=== PATIENT | female | born 1930 | race Caucasian/White ===

== ENCOUNTER 2017-10-28 07:04 | Emergency (ER) | payer MEDICARE, BC ==
--- NOTE | 2017-10-28 07:38 | EDM.PDOC ---
ED HPI GENERAL MEDICAL PROBLEM - General Chief Complaint: Genitourinary Problem Stated Complaint: UNABLE TO BATHROOM Time Seen by Provider: 10/28/17 07:25 - History of Present Illness INITIAL COMMENTS - FREE TEXT/NARRATIVE: HISTORY AND PHYSICAL: History of present illness: Patient is an 87-year-old white female who presents with a concern of having ingested a [place] several days prior and was concerned about not having passing her stool she has no abdominal pain no difficulty swallowing or breathing and no other complaints she also has had small frequent urination in the form of hesitancy. She equivocates regarding discomfort with urination she denies nausea vomiting fever chills back or abdominal pain. Review of systems: As per history of present illness and below otherwise all systems reviewed and negative. Past medical history: As per history of present illness and as reviewed below otherwise noncontributory. Surgical history: As per history of present illness and as reviewed below otherwise noncontributory. Social history: No reported history of drug or alcohol abuse. Family history: As per history of present illness and as reviewed below otherwise noncontributory. Physical exam: HEENT: Atraumatic, normocephalic, pupils reactive, negative for conjunctival pallor or scleral icterus, mucous membranes moist, throat clear, neck supple, nontender, trachea midline. Lungs: Clear to auscultation, breath sounds equal bilaterally, chest nontender. Heart: S1S2, regular, negative for clicks, rubs, or JVD. Abdomen: Soft, nondistended, nontender. Negative for masses or hepatosplenomegaly. Negative for costovertebral tenderness. Pelvis: Stable nontender. Genitourinary: Deferred. Rectal: Deferred. Extremities: Atraumatic, negative for cords or calf pain. Neurovascular unremarkable. Neuro: Awake, alert, oriented. Cranial nerves II through XII unremarkable. Cerebellum unremarkable. Motor and sensory unremarkable throughout. Exam nonfocal. Diagnostics: CBC CMP UA urine culture and sensitivity BladderScan Therapeutics: None Impression: 1 UTI Definitive disposition and diagnosis as appropriate pending reevaluation and review of above. lower abdominal Pain Score (Numeric/FACES): 1 - Related Data Allergies Allergy/AdvReac Type Severity Reaction Status Date / Time metoclopramide HCl Allergy Disorientat Verified 10/21/13 07:44 [From Reglan] ion Sulfa (Sulfonamide Allergy Swelling Verified 10/21/13 07:44 Antibiotics) Home Meds: Home Meds Acetaminophen [Tylenol Extra Strength] 1 tab PO ASDIRECTED PRN 10/21/13 [History ] Amoxicillin [Amoxil] 4 cap PO ASDIRECTED 10/21/13 [History] Ibuprofen [Motrin] 1 tab PO ASDIRECTED PRN 10/21/13 [History] Levothyroxine 112 mcg PO ACBRK 10/21/13 [History] Polyvinyl Alcohol/Povidone [Refresh Eye Drops] 1 drop EYEBOTH PRN 10/21/13 [ History] Sertraline [Zoloft] 50 mg PO DAILY 10/21/13 [History] Zolpidem [Ambien] 5 mg PO BEDTIME PRN 10/21/13 [History] traZODone 50 mg PO DAILY 10/21/13 [History] Past Medical History HEENT History: Reports: None Cardiovascular History: Reports: None Respiratory History: Reports: None Gastrointestinal History: Reports: None Genitourinary History: Reports: None 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 ED EXAM, GENERAL - Physical Exam Exam: See Below (Dictation) Course - Vital Signs Last Recorded V/S: Last Vital Signs Temp 36.2 C 10/28/17 07:15 Pulse 86 10/28/17 07:15 Resp 18 10/28/17 07:15 BP 156/88 H 10/28/17 07:15 Pulse Ox 94 L 10/28/17 07:15 - Orders/Labs/Meds Orders: Active Orders 24 hr Category Date Time Status CULTURE URINE [RM] Stat Lab 10/28/17 07:50 Received UA W/MICROSCOPIC [URIN] Stat Lab 10/28/17 07:50 Ordered Labs: Laboratory Tests 10/28/17 10/28/17 10/28/17 Range/Units 07:48 07:48 07:50 WBC 4.78 (4.0-11.0) K/uL RBC 3.96 L (4.30-5.90) M/uL Hgb 12.5 (12.0-16.0) g/dL Hct 37.0 (36.0-46.0) % MCV 93.4 (80.0-98.0) fL MCH 31.6 (27.0-32.0) pg MCHC 33.8 (31.0-37.0) g/dL RDW Std Deviation 45.4 (28.0-62.0) fl RDW Coeff of Felipe 13 (11.0-15.0) % Plt Count 185 (150-400) K/uL MPV 9.60 (7.40-12.00) fL Neut % (Auto) 46.9 L (48.0-80.0) % Lymph % (Auto) 38.5 (16.0-40.0) % [place] % (Auto) 9.4 (0.0-15.0) % Eos % (Auto) 4.6 (0.0-7.0) % Baso % (Auto) 0.6 (0.0-1.5) % Neut # (Auto) 2.2 (1.4-5.7) K/uL Lymph # (Auto) 1.8 (0.6-2.4) K/uL [place] # (Auto) 0.5 (0.0-0.8) K/uL Eos # (Auto) 0.2 (0.0-0.7) K/uL Baso # (Auto) 0.0 (0.0-0.1) K/uL Nucleated RBC % 0.0 /100WBC Nucleated RBCs # 0 K/uL Sodium 142 (136-145) mmol/L Potassium 4.0 (3.5-5.1) mmol/L Chloride 106 (98-107) mmol/L Carbon Dioxide 27.1 (21.0-32.0) mmol/L BUN 29 H (7.0-18.0) mg/dL Creatinine 0.8 (0.6-1.0) mg/dL Est Cr Clr Drug Dosing TNP Estimated GFR (MDRD) > 60.0 ml/min Glucose 88 (74-106) mg/dL Calcium 8.7 (8.5-10.1) mg/dL Total Bilirubin 0.4 (0.2-1.0) mg/dL AST 18 (15-37) IU/L ALT 17 (14-63) IU/L Alkaline Phosphatase 73 (46-116) U/L Total Protein 6.7 (6.4-8.2) g/dL Albumin 3.5 (3.4-5.0) g/dL Globulin 3.2 (2.0-3.5) g/dL Albumin/Globulin Ratio 1.1 L (1.3-2.8) Urine Color DARK YELLOW Urine Appearance SLT CLOUDY Urine pH 6.0 (5.0-8.0) Ur Specific [place] >= 1.030 (1.001-1.035) Urine Protein NEGATIVE (NEGATIVE) mg/dL Urine Glucose (UA) NEGATIVE (NEGATIVE) mg/dL Urine Ketones NEGATIVE (NEGATIVE) mg/dL Urine Occult Blood NEGATIVE (NEGATIVE) Urine Nitrite NEGATIVE (NEGATIVE) Urine Bilirubin NEGATIVE (NEGATIVE) Urine Urobilinogen 0.2 (<2.0) EU/dL Ur Leukocyte Esterase TRACE (NEGATIVE) Urine RBC 0-1 (0-2/HPF) Urine WBC 6-9 (0-5/HPF) Ur Epithelial Cells FEW (NONE-FEW) Urine Bacteria FEW (NEGATIVE) Urine Mucus LIGHT (NONE-MOD) Departure - Departure Time of Disposition: 09:52 Disposition: Home, Self-Care 01 Condition: Good Clinical Impression: UTI, Urinary tract infectious disease - Discharge Information Forms: ED Department Discharge Additional Instructions: The following information is given to patients seen in the emergency department who are being discharged to home. This information is to outline your options for follow-up care. We provide all patients seen in our emergency department with a follow-up referral. The need for follow-up, as well as the timing and circumstances, are variable depending upon the specifics of your emergency department visit. If you don't have a primary care physician on staff, we will provide you with a referral. We always advise you to contact your personal physician following an emergency department visit to inform them of the circumstance of the visit and for follow-up with them and/or the need for any referrals to a consulting specialist. The emergency department will also refer you to a specialist when appropriate. This referral assures that you have the opportunity for followup care with a specialist. All of these measure are taken in an effort to provide you with optimal care, which includes your followup. Under all circumstances we always encourage you to contact your private physician who remains a resource for coordinating your care. When calling for followup care, please make the office aware that this follow-up is from your recent emergency room visit. If for any reason you are refused follow-up, please contact the [facility] emergency department at and asked to speak to the emergency department charge nurse. Cipro Pyridium as prescribed push fluids follow primary medical doctor 1-2 days return as needed as discussed - My Orders Last 24 Hours: My Active Orders 10/28/17 07:50 CULTURE URINE [RM] Stat UA W/MICROSCOPIC [URIN] Stat - Assessment/Plan Last 24 Hours: My Active Orders 10/28/17 07:50 CULTURE URINE [RM] Stat UA W/MICROSCOPIC [URIN] Stat
[2017-10-28 08:20] LABS: CHLORIDE,CL 106 mmol/L (98-107); SODIUM,NA 142 mmol/L (136-145)
[2017-10-28 10:02] VITALS: BP 192/119
== END 2017-10-28 10:12 | disposition home or self-care (01) ==
LOC: MW.ED 07:04
DX: N39.0 Urinary tract infection, site not specified (principal); Z88.2 Allergy status to sulfonamides; Z88.8 Allergy status to other drugs, medicaments and biological substances; Z79.899 Other long term (current) drug therapy; Z90.710 Acquired absence of both cervix and uterus
CPT/HCPCS: 36415; 80053; 81001; 85025; 87086; 87088; 87186; 99283; 99284

== ENCOUNTER 2018-06-21 14:45 | Emergency (ER) | payer MEDICARE, BC ==
[2018-06-21] MEDS ORDERED: Sodium Chloride 0.9% 2.5 ML Syringe FLUSH PRN (14:51)
[2018-06-21] MEDS ORDERED: Sodium Chloride 0.9% 10 ML Syringe FLUSH PRN (14:51)
[2018-06-21] MEDS ORDERED: Sodium Chloride 0.9% 1,000 ML IV ONE (15:07)
--- NOTE | 2018-06-21 15:07 | EDM.PDOC ---
ED HPI GENERAL MEDICAL PROBLEM - General Chief Complaint: Abdominal Pain Stated Complaint: C DIFF Time Seen by Provider: 06/21/18 15:03 Source of Information: Reports: Patient History Limitations: Reports: No Limitations - History of Present Illness INITIAL COMMENTS - FREE TEXT/NARRATIVE: HISTORY AND PHYSICAL: History of present illness: Patient is an 88-year-old female here with complaint of generally not feeling well. She states that 6 days ago she started having some diarrhea and called her provider's office and has been taking Imodium on and off. She has a history of C. difficile 2 months ago and had been admitted for this. She states her stools are loose but still formed and not watery and smelly like it had been with her C. difficile. She states she is feeling nauseous, weak, and chills but denies vomiting, fevers, chest pain, shortness of breath, cough, abdominal pain , dysuria, hematuria. She has a follow up with Dr. Tim on 06/26. Review of systems: As per history of present illness and below otherwise all systems reviewed and negative. Past medical history: As per history of present illness and as reviewed below otherwise noncontributory. Surgical history: As per history of present illness and as reviewed below otherwise noncontributory. Social history: No reported history of drug or alcohol abuse. Family history: As per history of present illness and as reviewed below otherwise noncontributory. Physical exam: General: Patient sitting comfortably in no acute distress and nontoxic appearing HEENT: Atraumatic, normocephalic, pupils reactive, negative for conjunctival pallor or scleral icterus, mucous membranes moist, throat clear, neck supple, nontender, trachea midline. No meningeal signs. Lungs: Clear to auscultation, breath sounds equal bilaterally, chest nontender. Heart: S1S2, regular, negative for clicks, rubs, or overt murmur. Abdomen: Soft, nondistended, nontender. Negative for masses or hepatosplenomegaly. Negative for costovertebral tenderness. Pelvis: Stable nontender. Genitourinary: Deferred. Rectal: Deferred. Extremities: Atraumatic, negative for cords or calf pain. Neurovascular unremarkable. Neuro: Awake, alert, oriented. Cranial nerves II through XII unremarkable. Cerebellum unremarkable. Motor and sensory unremarkable throughout. Exam nonfocal. Notes: Discussed admitting vs outpatient treatment. Patient requesting to go home with PO antibiotics, declined dose of IV antibiotics in the ED. Diagnostics: CBC, CMP, UA, c. diff, stool studies Therapeutics: 1L Normal Saline IV Prescriptions: Ciprofloxacin Impression: UTI, fever Plan: 1. Take antibiotic as instructed and drink plenty of fluids 2. Follow up with primary care provider 3. Return to ED as needed as discussed Definitive disposition and diagnosis as appropriate pending reevaluation and review of above. - Related Data Allergies Allergy/AdvReac Type Severity Reaction Status Date / Time metoclopramide HCl Allergy Disorientat Verified 06/21/18 15:04 [From Reglan] ion Sulfa (Sulfonamide Allergy Disorientat Verified 06/21/18 15:04 Antibiotics) ion Home Meds: Home Meds Polyvinyl Alcohol/Povidone [Refresh] 1 drop EYEBOTH ASDIRECTED PRN 10/21/13 [ History] traZODone 50 mg PO DAILY 10/21/13 [History] Acetaminophen [Tylenol Extra Strength] 1 tab PO Q4H PRN #50 tablet 04/18/18 [Rx] LORazepam 0.5 mg PO Q6H PRN #50 tablet 04/18/18 [Rx] Levothyroxine 112 mcg PO ACBRK #60 tablet 04/18/18 [Rx] Multivitamin [Daily Multiple Vitamin] 1 tab PO DAILY #60 tablet 04/18/18 [Rx] Mupirocin Oint [Bactroban Oint] 1 gm TOP BID #5 tube 04/18/18 [Rx] Pantoprazole Sodium [Protonix] 20 mg PO DAILY #30 tablet.dr 04/18/18 [Rx] Potassium Chloride 10 meq PO DAILY 30 Days #30 capsule.er 04/18/18 [Rx] Sertraline [Zoloft] 100 mg PO DAILY #30 tablet 04/18/18 [Rx] Vancomycin [First-Vancomycin 25 Compounding Kit] 125 mg PO QID bottle 04/18/18 [Rx] Zolpidem [Ambien] 5 mg PO BEDTIME PRN #30 tablet 04/18/18 [Rx] Acetaminophen [Tylenol] 650 mg PO Q4H PRN tablet 05/18/18 [Rx] Cholestyramine/Aspartame [Cholestyramine Light] 4 gm PO QID #30 jar 12/27/18 [Rx ] Vancomycin [First-Vancomycin 25 Compounding Kit] 125 mg PO QID #14 bottle [Rx] Past Medical History HEENT History: Reports: Cataract, Other (See Below) Other HEENT History: wears glasses Cardiovascular History: Reports: None Respiratory History: Reports: None Gastrointestinal History: Reports: Other (See Below) Other Gastrointestinal History: Esophageal surgery, C diff hx Genitourinary History: Reports: None 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 Musculoskeletal History: Reports: Arthritis Other Musculoskeletal History: left knee surgery, right shoulder surgery Psychiatric History: Reports: Anxiety, Depression Endocrine/Metabolic History: Reports: Hypothyroidism Hematologic History: Reports: Blood Transfusion(s) - Infectious Disease History Infectious Disease History: Reports: Chicken Pox, Measles - Past Surgical History Other Musculoskeletal Surgeries/Procedures:: right total shoulder Arthroplasty, right total knee Arthroplasty Social & Family History - Family History Family Medical History: Noncontributory - Caffeine Use Caffeine Use: Reports: Coffee, Soda ED ROS GENERAL - Review of Systems Review Of Systems: ROS reveals no pertinent complaints other than HPI. ED EXAM, GI/ABD - Physical Exam Exam: See Below (see dictation) Course - Vital Signs Last Recorded V/S: Last Vital Signs Temp 99.2 F 06/21/18 16:55 Pulse 95 06/21/18 16:55 Resp 18 06/21/18 16:55 BP 152/86 H 06/21/18 15:25 Pulse Ox 94 L 06/21/18 16:55 - Orders/Labs/Meds Orders: Active Orders 24 hr Category Date Time Status CDIFF TOX A+B [OP] Stat Lab 06/21/18 14:51 Ordered CULTURE STOOL + CAMPY+SHIGATOX [RM] Stat Lab 06/21/18 14:51 Ordered CULTURE URINE [RM] Stat Lab 06/21/18 17:10 Received INFLUENZA A+B AG SCREEN [RM] Stat Lab 06/21/18 17:30 Ordered Sodium Chloride 0.9% [Saline Flush] Med 06/21/18 14:51 Active 10 ml FLUSH ASDIRECTED PRN Sodium Chloride 0.9% [Saline Flush] Med 06/21/18 14:51 Active 2.5 ml FLUSH ASDIRECTED PRN Saline Lock Insert [OM.PC] Stat Oth 06/21/18 14:50 Ordered Medication Orders Sodium Chloride (Saline Flush) 10 ml FLUSH ASDIRECTED PRN PRN Reason: Keep Vein Open Last Admin: 06/21/18 15:25 Dose: 10 ml Sodium Chloride (Saline Flush) 2.5 ml FLUSH ASDIRECTED PRN PRN Reason: Keep Vein Open Last Admin: 06/21/18 15:25 Dose: 2.5 ml Labs: Laboratory Tests 06/21/18 06/21/18 06/21/18 Range/Units 15:20 15:20 17:10 WBC 11.92 H (4.0-11.0) K/uL RBC 4.36 (4.30-5.90) M/uL Hgb 12.5 (12.0-16.0) g/dL Hct 38.1 (36.0-46.0) % MCV 87.4 (80.0-98.0) fL MCH 28.7 (27.0-32.0) pg MCHC 32.8 (31.0-37.0) g/dL RDW Std Deviation 51.2 (28.0-62.0) fl RDW Coeff of Felipe 16 H (11.0-15.0) % Plt Count 194 (150-400) K/uL MPV 9.60 (7.40-12.00) fL Neut % (Auto) 74.8 (48.0-80.0) % Lymph % (Auto) 16.2 (16.0-40.0) % [place] % (Auto) 7.6 (0.0-15.0) % Eos % (Auto) 1.2 (0.0-7.0) % Baso % (Auto) 0.2 (0.0-1.5) % Neut # (Auto) 8.9 H (1.4-5.7) K/uL Lymph # (Auto) 1.9 (0.6-2.4) K/uL [place] # (Auto) 0.9 H (0.0-0.8) K/uL Eos # (Auto) 0.1 (0.0-0.7) K/uL Baso # (Auto) 0.0 (0.0-0.1) K/uL Nucleated RBC % 0.0 /100WBC Nucleated RBCs # 0 K/uL Sodium 136 (136-145) mmol/L Potassium 4.0 (3.5-5.1) mmol/L Chloride 100 (98-107) mmol/L Carbon Dioxide 25.6 (21.0-32.0) mmol/L BUN 15 (7.0-18.0) mg/dL Creatinine 0.7 (0.6-1.0) mg/dL Est Cr Clr Drug Dosing 39.90 mL/min Estimated GFR (MDRD) > 60.0 ml/min Glucose 95 (74-106) mg/dL Calcium 9.0 (8.5-10.1) mg/dL Total Bilirubin 0.6 (0.2-1.0) mg/dL AST 14 L (15-37) IU/L ALT 12 L (14-63) IU/L Alkaline Phosphatase 75 (46-116) U/L Total Protein 6.9 (6.4-8.2) g/dL Albumin 3.3 L (3.4-5.0) g/dL Globulin 3.6 (2.6-4.0) g/dL Albumin/Globulin Ratio 0.9 (0.9-1.6) Urine Color YELLOW Urine Appearance SLT CLOUDY Urine pH 6.0 (5.0-8.0) Ur Specific [place] 1.020 (1.001-1.035) Urine Protein NEGATIVE (NEGATIVE) mg/dL Urine Glucose (UA) NEGATIVE (NEGATIVE) mg/dL Urine Ketones 15 H (NEGATIVE) mg/dL Urine Occult Blood NEGATIVE (NEGATIVE) Urine Nitrite POSITIVE H (NEGATIVE) Urine Bilirubin NEGATIVE (NEGATIVE) Urine Urobilinogen 0.2 (<2.0) EU/dL Ur Leukocyte Esterase SMALL H (NEGATIVE) Urine RBC 0-2 (0-2/HPF) Urine WBC 3-5 (0-5/HPF) Ur Epithelial Cells FEW (NONE-FEW) Urine Bacteria 2+ H (NEGATIVE) Meds: Medications Generic Name Dose Route Start Last Admin Trade Name Freq PRN Reason Stop Dose Admin Sodium Chloride 10 ml 06/21/18 14:51 06/21/18 15:25 Saline Flush FLUSH 10 ml ASDIRECTED PRN Administration Keep Vein Open Sodium Chloride 2.5 ml 06/21/18 14:51 06/21/18 15:25 Saline Flush FLUSH 2.5 ml ASDIRECTED PRN Administration Keep Vein Open Discontinued Medications Generic Name Dose Route Start Last Admin Trade Name Freq PRN Reason Stop Dose Admin Acetaminophen 650 mg 06/21/18 16:22 06/21/18 16:27 Tylenol PO 06/21/18 16:23 650 mg NOW ONE Administration Acetaminophen Confirm 06/21/18 16:25 06/21/18 16:28 Tylenol Administered 06/21/18 16:26 Not Given Dose 650 mg .ROUTE .STK-MED ONE Sodium Chloride 1,000 mls @ 999 mls/hr 06/21/18 15:07 06/21/18 15:25 Normal Saline IV 06/21/18 16:07 999 mls/hr STAT ONE Administration Departure - Departure Time of Disposition: 18:10 Disposition: Home, Self-Care 01 Condition: Good Clinical Impression: UTI (urinary tract infection), Fever - Discharge Information Referrals: Gary Tim MD [Primary Care Provider] - Forms: ED Department Discharge Additional Instructions: The following information is given to patients seen in the emergency department who are being discharged to home. This information is to outline your options for follow-up care. We provide all patients seen in our emergency department with a follow-up referral. The need for follow-up, as well as the timing and circumstances, are variable depending upon the specifics of your emergency department visit. If you don't have a primary care physician on staff, we will provide you with a referral. We always advise you to contact your personal physician following an emergency department visit to inform them of the circumstance of the visit and for follow-up with them and/or the need for any referrals to a consulting specialist. The emergency department will also refer you to a specialist when appropriate. This referral assures that you have the opportunity for follow-up care with a specialist. All of these measure are taken in an effort to provide you with optimal care, which includes your follow-up. Under all circumstances we always encourage you to contact your private physician who remains a resource for coordinating your care. When calling for follow-up care, please make the office aware that this follow-up is from your recent emergency room visit. If for any reason you are refused follow-up, please contact the [facility] Emergency Department at and asked to speak to the emergency department charge nurse. [address] [address] 1. Take antibiotic as instructed and drink plenty of fluids 2. Follow up with primary care provider 3. Return to ED as needed as discussed - My Orders Last 24 Hours: My Active Orders 06/21/18 14:50 Saline Lock Insert [OM.PC] Stat 06/21/18 14:51 CDIFF TOX A+B [OP] Stat CULTURE STOOL + CAMPY+SHIGATOX [RM] Stat Sodium Chloride 0.9% [Saline Flush] 10 ml FLUSH ASDIRECTED PRN Sodium Chloride 0.9% [Saline Flush] 2.5 ml FLUSH ASDIRECTED PRN 06/21/18 17:10 CULTURE URINE [RM] Stat 06/21/18 17:30 INFLUENZA A+B AG SCREEN [RM] Stat - Assessment/Plan Last 24 Hours: My Active Orders 06/21/18 14:50 Saline Lock Insert [OM.PC] Stat 06/21/18 14:51 CDIFF TOX A+B [OP] Stat CULTURE STOOL + CAMPY+SHIGATOX [RM] Stat Sodium Chloride 0.9% [Saline Flush] 10 ml FLUSH ASDIRECTED PRN Sodium Chloride 0.9% [Saline Flush] 2.5 ml FLUSH ASDIRECTED PRN 06/21/18 17:10 CULTURE URINE [RM] Stat 06/21/18 17:30 INFLUENZA A+B AG SCREEN [RM] Stat
[2018-06-21 15:54] LABS: CHLORIDE,CL 100 mmol/L (98-107); SODIUM,NA 136 mmol/L (136-145)
[2018-06-21] MEDS ORDERED: Acetaminophen 325 MG Tab PO ONE (16:22)
[2018-06-21] MEDS ORDERED: Acetaminophen 325 MG Tab ONE (16:25)
[2018-06-21 18:38] VITALS: BP 155/77
== END 2018-06-21 18:34 | disposition home or self-care (01) ==
LOC: MW.ED 14:45
DX: N39.0 Urinary tract infection, site not specified (principal); F41.9 Anxiety disorder, unspecified; F32.9 Major depressive disorder, single episode, unspecified; E03.9 Hypothyroidism, unspecified; Z79.899 Other long term (current) drug therapy; Z88.2 Allergy status to sulfonamides; Z88.8 Allergy status to other drugs, medicaments and biological substances
CPT/HCPCS: 36415; 80053; 81001; 85025; 87086; 87804; 96360; 99284; A9270; J7040; 87088; 87186

== ENCOUNTER 2018-08-27 17:42 | Emergency (ER) | payer MEDICARE, BC ==
[2018-08-27 18:03] VITALS: BP 168/97
[2018-08-27] MEDS ORDERED: Sodium Chloride 0.9% 2.5 ML Syringe FLUSH PRN (18:20)
[2018-08-27] MEDS ORDERED: Sodium Chloride 0.9% 1,000 ML IV ONE (18:20)
[2018-08-27] MEDS ORDERED: Ondansetron 4 MG/2 ML SDV IVPUSH ONE (18:20)
[2018-08-27] MEDS ORDERED: Sodium Chloride 0.9% 10 ML Syringe FLUSH PRN (18:20)
[2018-08-27] MEDS ORDERED: Morphine 2 MG/ML Syringe IVPUSH ONE (18:20)
--- NOTE | 2018-08-27 18:51 | EDM.PDOC ---
<Lovely So - Last Filed: 08/27/18 18:53> ED HPI GENERAL MEDICAL PROBLEM - General Chief Complaint: Abdominal Pain Stated Complaint: PAIN IN LOWER LT STOMACH Time Seen by Provider: 08/27/18 18:01 Source of Information: Reports: Patient History Limitations: Reports: No Limitations - History of Present Illness INITIAL COMMENTS - FREE TEXT/NARRATIVE: History of present illness: []Patient has had 2 year history of a left lower abdominal hernia that has steadily been increasing in size. She started having pain this morning and has progressively worsened today. She had a bowel movement yesterday but has not had any today and states she has not passed any gas today. She is not vomiting but is nauseated. She denies any fevers or chills. Review of systems: As per history of present illness and below otherwise all systems reviewed and negative. Past medical history: As per history of present illness and as reviewed below otherwise noncontributory. Surgical history: As per history of present illness and as reviewed below otherwise noncontributory. Social history: No reported history of drug or alcohol abuse. Family history: As per history of present illness and as reviewed below otherwise noncontributory. Physical exam: General: Well developed, well nourished in NAD HEENT: Atraumatic, normocephalic, pupils reactive, negative for conjunctival pallor or scleral icterus, mucous membranes moist, throat clear, neck supple, nontender, trachea midline. Lungs: Clear to auscultation, breath sounds equal bilaterally, chest nontender. Heart: S1S2, regular, negative for clicks, rubs, or JVD. Abdomen: NABS, Soft, 7cm x 7 cm tender protrusion on her left lower abdomen/ pelvis is tender without erythema of the skin.. Negative for masses or hepatosplenomegaly. Negative for costovertebral tenderness. Pelvis: Stable nontender. Genitourinary: Deferred. Rectal: Deferred. Extremities: Atraumatic, negative for cords or calf pain. Neurovascular unremarkable. Neuro: Awake, alert, oriented. Cranial nerves II through XII unremarkable. Cerebellum unremarkable. Motor and sensory unremarkable throughout. Exam nonfocal. Skin:warm and dry Diagnostics: CBC, chemistry, UA Therapeutics: IV fluid, morphine, Zofran ED Course: Signed out to Dr. Kraft to check labs and CT scan for final diagnosis and disposition Impression: Prescriptions: Plan: Definitive disposition and diagnosis as appropriate pending reevaluation and review of above. Abdomen Pain Score (Numeric/FACES): 10 - Related Data Allergies Allergy/AdvReac Type Severity Reaction Status Date / Time metoclopramide HCl Allergy Disorientat Verified 08/27/18 18:03 [From Reglan] ion Sulfa (Sulfonamide Allergy Disorientat Verified 08/27/18 18:03 Antibiotics) ion Home Meds: Home Meds Polyvinyl Alcohol/Povidone [Refresh] 1 drop EYEBOTH ASDIRECTED PRN 10/21/13 [ History] LORazepam 0.5 mg PO Q6H PRN #50 tablet 04/18/18 [Rx] Levothyroxine 112 mcg PO ACBRK #60 tablet 04/18/18 [Rx] Multivitamin [Daily Multiple Vitamin] 1 tab PO DAILY #60 tablet 04/18/18 [Rx] Sertraline [Zoloft] 100 mg PO DAILY #30 tablet 04/18/18 [Rx] Zolpidem [Ambien] 5 mg PO BEDTIME PRN #30 tablet 04/18/18 [Rx] Past Medical History HEENT History: Reports: Cataract, Impaired Vision, Other (See Below) Other HEENT History: wears glasses Cardiovascular History: Reports: None Respiratory History: Reports: None Gastrointestinal History: Reports: GERD, Other (See Below) Other Gastrointestinal History: Esophageal surgery, C diff hx,hernia Genitourinary History: Reports: None 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: Musculoskeletal History: Reports: Arthritis Other Musculoskeletal History: left knee surgery, right shoulder surgery Psychiatric History: Reports: Anxiety, Depression Endocrine/Metabolic History: Reports: Hypothyroidism Hematologic History: Reports: Blood Transfusion(s) - Infectious Disease History Infectious Disease History: Reports: Chicken Pox, Measles - Past Surgical History Head Surgeries/Procedures: Reports: None HEENT Surgical History: Reports: Eye Surgery GI Surgical History: Reports: Appendectomy, Colostomy, EGD Female Surgical History: Reports: Hysterectomy Other Musculoskeletal Surgeries/Procedures:: right total shoulder Arthroplasty, right total knee Arthroplasty Social & Family History - Family History Family Medical History: Noncontributory - Tobacco Use Smoking Status *Q: Never Smoker - Caffeine Use Caffeine Use: Reports: Coffee, Soda - Recreational Drug Use Recreational Drug Use: No ED ROS GENERAL - Review of Systems Review Of Systems: ROS reveals no pertinent complaints other than HPI. ED EXAM, GI/ABD - Physical Exam Exam: See Below (The history of present illness) Course - Vital Signs Last Recorded V/S: Last Vital Signs Temp 36.6 C 08/27/18 18:00 Pulse 95 08/27/18 18:00 Resp BP 168/97 H 08/27/18 18:00 Pulse Ox 94 L 08/27/18 18:00 - Orders/Labs/Meds Orders: Active Orders 24 hr Category Date Time Status Notify Provider Consults [RC] ASDIRECTED Care 08/27/18 21:05 Active Consult to Physician [CONS] Stat Cons 08/27/18 21:05 Active Sodium Chloride 0.9% [Saline Flush] Med 08/27/18 18:20 Active 10 ml FLUSH ASDIRECTED PRN Sodium Chloride 0.9% [Saline Flush] Med 08/27/18 18:20 Active 2.5 ml FLUSH ASDIRECTED PRN Saline Lock Insert [OM.PC] Stat Oth 08/27/18 18:20 Ordered Medication Orders Sodium Chloride (Saline Flush) 10 ml FLUSH ASDIRECTED PRN PRN Reason: Keep Vein Open Last Admin: 08/27/18 18:54 Dose: 10 ml Sodium Chloride (Saline Flush) 2.5 ml FLUSH ASDIRECTED PRN PRN Reason: Keep Vein Open Last Admin: 08/27/18 18:54 Dose: 2.5 ml Labs: Laboratory Tests 08/27/18 08/27/18 08/27/18 Range/Units 18:38 18:38 18:38 WBC 5.68 (4.0-11.0) K/uL RBC 4.52 (4.30-5.90) M/uL Hgb 13.0 (12.0-16.0) g/dL Hct 38.6 (36.0-46.0) % MCV 85.4 (80.0-98.0) fL MCH 28.8 (27.0-32.0) pg MCHC 33.7 (31.0-37.0) g/dL RDW Std Deviation 48.4 (28.0-62.0) fl RDW Coeff of Felipe 16 H (11.0-15.0) % Plt Count 225 (150-400) K/uL MPV 9.20 (7.40-12.00) fL Neut % (Auto) 60.4 (48.0-80.0) % Lymph % (Auto) 23.6 (16.0-40.0) % [place] % (Auto) 11.8 (0.0-15.0) % Eos % (Auto) 3.7 (0.0-7.0) % Baso % (Auto) 0.5 (0.0-1.5) % Neut # (Auto) 3.4 (1.4-5.7) K/uL Lymph # (Auto) 1.3 (0.6-2.4) K/uL [place] # (Auto) 0.7 (0.0-0.8) K/uL Eos # (Auto) 0.2 (0.0-0.7) K/uL Baso # (Auto) 0.0 (0.0-0.1) K/uL Nucleated RBC % 0.0 /100WBC Nucleated RBCs # 0 K/uL Lactate 1.1 (0.20-2.00) mmol/L Sodium 139 (136-145) mmol/L Potassium 4.0 (3.5-5.1) mmol/L Chloride 103 (98-107) mmol/L Carbon Dioxide 23.1 (21.0-32.0) mmol/L BUN 26 H (7.0-18.0) mg/dL Creatinine 0.9 (0.6-1.0) mg/dL Est Cr Clr Drug Dosing 31.04 mL/min Estimated GFR (MDRD) 59.1 ml/min Glucose 99 (74-106) mg/dL Calcium 9.1 (8.5-10.1) mg/dL Total Bilirubin 0.6 (0.2-1.0) mg/dL AST 17 (15-37) IU/L ALT 16 (14-63) IU/L Alkaline Phosphatase 82 (46-116) U/L Total Protein 7.4 (6.4-8.2) g/dL Albumin 3.5 (3.4-5.0) g/dL Globulin 3.9 (2.6-4.0) g/dL Albumin/Globulin Ratio 0.9 (0.9-1.6) Meds: Medications Generic Name Dose Route Start Last Admin Trade Name Freq PRN Reason Stop Dose Admin Sodium Chloride 10 ml 04/07/19 18:20 08/27/18 18:54 Saline Flush FLUSH 10 ml ASDIRECTED PRN Administration Keep Vein Open Sodium Chloride 2.5 ml 08/27/18 18:20 08/27/18 18:54 Saline Flush FLUSH 2.5 ml ASDIRECTED PRN Administration Keep Vein Open Discontinued Medications Generic Name Dose Route Start Last Admin Trade Name Suraj PRN Reason Stop Dose Admin Sodium Chloride 1,000 mls @ 999 mls/hr 08/27/18 18:20 08/27/18 18:43 Normal Saline IV 08/27/18 19:20 999 mls/hr .Bolus ONE Administration Iopamidol 100 ml 08/27/18 19:52 08/27/18 20:02 Isovue-370 (76%) IVPUSH 08/27/18 19:53 100 ml ONETIME ONE Administration Morphine Sulfate 2 mg 08/27/18 18:20 08/27/18 18:44 Morphine IVPUSH 08/27/18 18:21 2 mg ONETIME ONE Administration Ondansetron HCl 4 mg 08/27/18 18:20 08/27/18 18:44 Zofran IVPUSH 08/27/18 18:21 4 mg ONETIME ONE Administration Departure - Departure Disposition: Home, Self-Care 01 Clinical Impression: Inguinal hernia of left side without obstruction or gangrene - Discharge Information Referrals: PCP,Unknown [Primary Care Provider] - Forms: ED Department Discharge Additional Instructions: The following information is given to patients seen in the emergency department who are being discharged to home. This information is to outline your options for follow-up care. We provide all patients seen in our emergency department with a follow-up referral. The need for follow-up, as well as the timing and circumstances, are variable depending upon the specifics of your emergency department visit. If you don't have a primary care physician on staff, we will provide you with a referral. We always advise you to contact your personal physician following an emergency department visit to inform them of the circumstance of the visit and for follow-up with them and/or the need for any referrals to a consulting specialist. The emergency department will also refer you to a specialist when appropriate. This referral assures that you have the opportunity for followup care with a specialist. All of these measure are taken in an effort to provide you with optimal care, which includes your followup. Under all circumstances we always encourage you to contact your private physician who remains a resource for coordinating your care. When calling for followup care, please make the office aware that this follow-up is from your recent emergency room visit. If for any reason you are refused follow-up, please contact the [facility] emergency department at and ask to speak to the emergency department charge nurse. [facility] [address] [place] [address] [place] [address] [facility] Professional Building [address] [facility] [address] [place] [address] Tim tomorrow for follow-up care and referral for surgical evaluation and repair of your hernia. He may also follow-up with Dr. Watkins in the clinic as you choose. Please only take a clear to full liquid diet for the next few days as Dr. Watkins discussed with you. No lifting or any strenuous activity until you follow up with Dr. Tim. Return to ER as needed and as discussed - My Orders Last 24 Hours: My Active Orders 08/27/18 21:05 Notify Provider Consults [RC] ASDIRECTED Consult to Physician [CONS] Stat - Assessment/Plan Last 24 Hours: My Active Orders 08/27/18 21:05 Notify Provider Consults [RC] ASDIRECTED Consult to Physician [CONS] Stat <Damaris Kraft - Last Filed: 08/27/18 21:42> ED HPI GENERAL MEDICAL PROBLEM - History of Present Illness INITIAL COMMENTS - FREE TEXT/NARRATIVE: This is Dr. Kraft dictating addendum note as this case was endorsed to me at 7 :15 PM. I followed up the CAT scan results and discuss them with the patient and family at bedside. On the history that I am obtaining the patient tells me that she has had a known hernia but it is not been increasing in size and it is only been noted by her to be large and discomforting as of this morning. She has not had any vomiting and the remainder of the abdomen is not tender. On my clinical exam she has a slightly larger than golf ball size left inguinal hernia which is firm and tender and I cannot reduce it easily. The remainder of her abdomen is soft and nontender. I have consulted Dr. Watkins to come and tease out the issues and to review the CT scan because it is saying that there is transverse: In this hernia which is unusual. He will do a formal consult and dictate care plan. Please see Dr. Watkins's consult note as he came to the ED and reduce the hernia. He does not feel that this is the case that could be performed here and he wants the patient to follow-up with Dr. Tim for referral for repair at a higher institution of care. He is advised to clear to full liquid diet for the next few days and reasons to return to the ED Impression: Entrapped left inguinal hernia reduced ED ROS GENERAL - Review of Systems Review Of Systems: ROS reveals no pertinent complaints other than HPI. ED EXAM, GI/ABD - Physical Exam Exam: See Below Departure - Departure Time of Disposition: 21:40 Condition: Good
[2018-08-27] MEDS ORDERED: Iopamidol 755 Mg/ML 100 ML Bottle IVPUSH ONE (19:52)
--- NOTE | 2018-08-27 20:26 | CT ---
INDICATION: Abdominal pain. TECHNIQUE: CT abdomen and pelvis acquired with 100 cc Isovue 370 IV contrast. COMPARISON: September 02, 2015. FINDINGS: Lower chest: Cardiomegaly is present. Liver: Unremarkable. Normal in size and attenuation. No masses. Gallbladder and bile ducts: Gallbladder is moderately distended but otherwise unremarkable. No stones or inflammation. No biliary dilatation. Pancreas: A 7 mm cystic lesion is at the junction of the pancreatic body and tail on series 201, image 39. Mild pancreatic duct dilatation is proximal to the cystic lesion. Remainder of the pancreas is unremarkable. Spleen: Unremarkable. Normal in size. No masses. Adrenal glands: Unremarkable. No nodules. Kidneys: Unremarkable. No masses, stones, or hydronephrosis. GI tract: There is a left inguinal hernia containing a segment of transverse colon. This hernia is causing mild obstructive changes. Remainder of the GI tract is unremarkable. Vasculature: Unremarkable. Lymph nodes: No lymphadenopathy. Omentum/Peritoneum/Abdominal Wall: Unremarkable. No sign of mass or infiltration. No free air or significant free fluid. Pelvis: Unremarkable. Bones: Mild compression deformity of the L1 vertebral body appears chronic. 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 No other significant finding. IMPRESSION: Left inguinal hernia contains a short segment of transverse colon and is causing minimal obstructive changes of the colon. No signs of bowel ischemia. No other acute or significant findings. Please note that all CT scans at this facility use dose modulation, iterative reconstruction, and/or weight-based dosing when appropriate to reduce radiation dose to as low as reasonably achievable. Dictated by Trevin Banuelos MD @ Aug 27 2018 8:08PM Signed by Dr. Trevin Banuelos @ Aug 27 2018 8:24PM
--- NOTE | 2018-08-27 21:51 | PCM.CONS ---
H&P History of Present Illness - General Date of Service: 08/27/18 Admit Problem/Dx: Incarcerated left inguinal hernia Source of Information: Patient, Family History Limitations: Reports: No Limitations - History of Present Illness Initial Comments - Free Text/Narative: Patient is an 88-year-old female who presented to the emergency room tonight with about a 24-hour history of abdominal pain with nausea. No vomiting, no bowel movements and no flatus. She is known to have a left inguinal hernia that has been present for at least 2 years. Nothing has been done with that, and surgical consultation had not yet been obtained. Patient states it has gradually been getting bigger. Today, she had more left lower quadrant pain and could not reduce the hernia. Onset of Symptoms: Reports: Other (2 year history of a left inguinal hernia that is getting larger) Location: Reports: Abdomen Quality: Reports: Pressure, Throbbing Severity: Moderate Improves with: Reports: Rest Worsens with: Reports: None Context: Reports: Sick Contact Associated Symptoms: Reports: Nausea/Vomiting (Nausea, no vomiting) Abdomen Pain Score (Numeric/FACES): 10 - Related Data Allergies/Adverse Reactions: Allergies Allergy/AdvReac Type Severity Reaction Status Date / Time metoclopramide HCl Allergy Disorientat Verified 08/27/18 18:03 [From Reglan] ion Sulfa (Sulfonamide Allergy Disorientat Verified 08/27/18 18:03 Antibiotics) ion Home Medications: Home Meds Polyvinyl Alcohol/Povidone [Refresh] 1 drop EYEBOTH ASDIRECTED PRN 10/21/13 [ History] LORazepam 0.5 mg PO Q6H PRN #50 tablet 04/18/18 [Rx] Levothyroxine 112 mcg PO ACBRK #60 tablet 04/18/18 [Rx] Multivitamin [Daily Multiple Vitamin] 1 tab PO DAILY #60 tablet 04/18/18 [Rx] Sertraline [Zoloft] 100 mg PO DAILY #30 tablet 04/18/18 [Rx] Zolpidem [Ambien] 5 mg PO BEDTIME PRN #30 tablet 04/18/18 [Rx] Past Medical History HEENT History: Reports: Cataract, Impaired Vision, Other (See Below) Other HEENT History: wears glasses Cardiovascular History: Reports: None Respiratory History: Reports: None Gastrointestinal History: Reports: GERD, Other (See Below) Other Gastrointestinal History: Esophageal surgery, C diff hx,hernia Genitourinary History: Reports: None 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: Musculoskeletal History: Reports: Arthritis Other Musculoskeletal History: left knee surgery, right shoulder surgery Psychiatric History: Reports: Anxiety, Depression Endocrine/Metabolic History: Reports: Hypothyroidism Hematologic History: Reports: Blood Transfusion(s) - Infectious Disease History Infectious Disease History: Reports: Chicken Pox, Measles - Past Surgical History Head Surgeries/Procedures: Reports: None HEENT Surgical History: Reports: Eye Surgery GI Surgical History: Reports: Appendectomy, Colonoscopy, EGD Female Surgical History: Reports: Hysterectomy Other Musculoskeletal Surgeries/Procedures:: right total shoulder Arthroplasty, right total knee Arthroplasty Social & Family History - Family History Family Medical History: Noncontributory - Tobacco Use Smoking Status *Q: Never Smoker - Caffeine Use Caffeine Use: Reports: Coffee, Soda - Recreational Drug Use Recreational Drug Use: No H&P Review of Systems - Review of Systems: Review Of Systems: See Below General: Reports: Chills, Decreased Appetite. Denies: Fever, Malaise, Weakness , Fatigue, Weight Loss HEENT: Reports: No Symptoms Pulmonary: Denies: Shortness of Breath, Wheezing Cardiovascular: Denies: Chest Pain, Palpitations Gastrointestinal: Reports: Abdominal Pain, Anorexia, Decreased Appetite, Nausea. Denies: Black Stool, Bloody Stool, Constipation, Diarrhea, Distension, Flatus, Hematochezia, Melena, Vomiting Genitourinary: Denies: Dysuria, Frequency, Burning Musculoskeletal: Reports: No Symptoms Skin: Denies: Cyanosis, Jaundice Psychiatric: Reports: Other (Lives alone in her own home). Denies: Confusion, Depression, Mood Lability Neurological: Denies: Confusion, Dizziness, Headache, Numbness Hematologic/Lymphatic: Denies: Anemia, Easy Bleeding, Easy Bruising Immunologic: Reports: No Symptoms Exam - Exam Exam: See Below - Vital Signs Vital Signs: Last Vital Signs Temp 97.8 F 08/27/18 18:00 Pulse 95 08/27/18 18:00 Resp BP 168/97 H 08/27/18 18:00 Pulse Ox 94 L 08/27/18 18:00 Weight: 120 lb - Exam General: Alert, Oriented, Cooperative, Mild Distress HEENT: Conjunctiva Clear, EACs Clear, Pupils Equal, Pupils Reactive. No: Scleral Icterus Neck: Supple, Trachea Midline, +2 Carotid Pulse wo Bruit Lungs: Clear to Auscultation, Normal Respiratory Effort. No: Crackles, Rales, Rhonchi, Wheezing Cardiovascular: Regular Rate, Regular Rhythm, Normal S1, Normal S2. No: Tachycardia, Systolic Murmur, Diastolic Murmur GI/Abdominal Exam: Normal Bowel Sounds, Soft, Non-Tender, No Distention, Hernia , Mass (Patient did have an incarcerated left inguinal hernia. With gentle pressure, I was able to reduce the hernia with marked improvement in her symptoms.). No: Guarding, Rigid, Rebound (Female) Exam: Normal External Exam Rectal (Female) Exam: Deferred Back Exam: Normal Inspection Extremities: Normal Inspection Skin: Warm, Dry, Intact Neuro Extensive - Mental Status: Alert, Oriented x3, Normal Mood/Affect, Normal Cognition, Memory Intact Psychiatric: Alert, Normal Affect, Normal Mood - Patient Data Lab Results Last 24 hrs: Laboratory Results - last 24 hr 08/27/18 08/27/18 08/27/18 Range/Units 18:38 18:38 18:38 WBC 5.68 (4.0-11.0) K/uL RBC 4.52 (4.30-5.90) M/uL Hgb 13.0 (12.0-16.0) g/dL Hct 38.6 (36.0-46.0) % MCV 85.4 (80.0-98.0) fL MCH 28.8 (27.0-32.0) pg MCHC 33.7 (31.0-37.0) g/dL RDW Std Deviation 48.4 (28.0-62.0) fl RDW Coeff of Felipe 16 H (11.0-15.0) % Plt Count 225 (150-400) K/uL MPV 9.20 (7.40-12.00) fL Neut % (Auto) 60.4 (48.0-80.0) % Lymph % (Auto) 23.6 (16.0-40.0) % [place] % (Auto) 11.8 (0.0-15.0) % Eos % (Auto) 3.7 (0.0-7.0) % Baso % (Auto) 0.5 (0.0-1.5) % Neut # (Auto) 3.4 (1.4-5.7) K/uL Lymph # (Auto) 1.3 (0.6-2.4) K/uL [place] # (Auto) 0.7 (0.0-0.8) K/uL Eos # (Auto) 0.2 (0.0-0.7) K/uL Baso # (Auto) 0.0 (0.0-0.1) K/uL Nucleated RBC % 0.0 /100WBC Nucleated RBCs # 0 K/uL Lactate 1.1 (0.20-2.00) mmol/L Sodium 139 (136-145) mmol/L Potassium 4.0 (3.5-5.1) mmol/L Chloride 103 (98-107) mmol/L Carbon Dioxide 23.1 (21.0-32.0) mmol/L BUN 26 H (7.0-18.0) mg/dL Creatinine 0.9 (0.6-1.0) mg/dL Est Cr Clr Drug Dosing 31.04 mL/min Estimated GFR (MDRD) 59.1 ml/min Glucose 99 (74-106) mg/dL Calcium 9.1 (8.5-10.1) mg/dL Total Bilirubin 0.6 (0.2-1.0) mg/dL AST 17 (15-37) IU/L ALT 16 (14-63) IU/L Alkaline Phosphatase 82 (46-116) U/L Total Protein 7.4 (6.4-8.2) g/dL Albumin 3.5 (3.4-5.0) g/dL Globulin 3.9 (2.6-4.0) g/dL Albumin/Globulin Ratio 0.9 (0.9-1.6) Result Diagrams: 08/27/18 18:38 08/27/18 18:38 Imaging Impressions Last 24 hrs: CT scan and report have personally been reviewed. Patient did have an incarcerated left inguinal hernia that I was able to reduce with minimal difficulty. Certainly on the CAT scan, I agree that there appears to be transverse colon present in the hernia. This is worrisome for loss of abdominal domain. Consult PN Assessment/Plan Procedures: Procedures AGENT NOS ASSAY W/OPTIC (04/12/18) ASSAY OF LACTIC ACID (05/14/18) ASSAY OF LIPASE (05/14/18) ASSAY OF MAGNESIUM (05/14/18) ASSAY OF NATRIURETIC PEPTIDE (10/21/13) BLOOD CULTURE FOR BACTERIA (05/14/18) CHEST X-RAY 2VW FRONTAL&LATL (10/21/13) CLOSTRIDIUM AG IA (05/14/18) COMPLETE CBC AUTOMATED (05/14/18) COMPLETE CBC W/AUTO DIFF WBC (06/21/18) COMPREHEN METABOLIC PANEL (06/21/18) CT ABD & PELV 1/> REGNS (09/02/15) CT UPPER EXTREMITY W/O DYE (02/27/18) CULTURE AEROBIC IDENTIFY (04/12/18) CULTURE SCREEN ONLY (10/21/13) ELECTROCARDIOGRAM TRACING (05/14/18) EMERGENCY DEPT VISIT (06/21/18) EMERGENCY DEPT VISIT (05/14/18) EMERGENCY DEPT VISIT (10/28/17) EMERGENCY DEPT VISIT (10/04/14) EMERGENCY DEPT VISIT (10/21/13) EMERGENCY DEPT VISIT (10/21/13) EXC FACE-MM B9+JEANNETTE 1.1-2 CM (03/24/18) FIBRIN DEGRADATION QUANT (10/21/13) HYDRATE IV INFUSION ADD-ON (05/14/18) HYDRATION IV INFUSION INIT (06/21/18) IMMUNIZATION ADMIN (10/04/14) INFLUENZA ASSAY W/OPTIC (06/21/18) INTMD RPR FACE/MM 2.5 CM/< (03/24/18) METABOLIC PANEL TOTAL CA (05/14/18) MICROBE SUSCEPTIBLE ECTOR (05/14/18) OCCULT BLD FECES 1-3 TESTS (04/12/18) OT EVAL LOW COMPLEX 30 MIN (05/14/18) PT EVAL LOW COMPLEX 20 MIN (04/12/18) PT EVAL MOD COMPLEX 30 MIN (05/14/18) ROUTINE VENIPUNCTURE (06/21/18) STOOL CULTR AEROBIC BACT EA (04/12/18) STREP A AG IA (10/21/13) TDAP VACCINE 7 YRS/> IM (10/04/14) THER/DIAG CONCURRENT INF (05/14/18) THER/PROPH/DIAG INJ SC/IM (05/14/18) THER/PROPH/DIAG IV INF ADDON (05/14/18) THER/PROPH/DIAG IV INF INIT (05/14/18) THERAPEUTIC ACTIVITIES (04/12/18) THERAPEUTIC EXERCISES (05/14/18) TX/PRO/DX INJ NEW DRUG ADDON (05/14/18) TX/PRO/DX INJ SAME DRUG MILL TURNER (05/14/18) TX/PROPH/DG ADDL SEQ IV INF (05/14/18) URINALYSIS AUTO W/SCOPE (06/21/18) URINE BACTERIA CULTURE (05/14/18) URINE CULTURE/COLONY COUNT (06/21/18) X-RAY EXAM SERIES ABDOMEN (05/14/18) (1) Inguinal hernia of left side without obstruction or gangrene SNOMED Code(s): 534822099 Code(s): K40.90 - UNIL INGUINAL HERNIA, W/O OBST OR GANGR, NOT SPCF RECUR Priority: High Current Visit: Yes (2) Antibiotic-associated diarrhea SNOMED Code(s): 415745412 Code(s): K52.1 - TOXIC GASTROENTERITIS AND COLITIS; T36.95XA - ADVERSE EFFECT OF UNSP SYSTEMIC ANTIBIOTIC, INIT ENCNTR Priority: Low Current Visit : No Problem List Initiated/Reviewed/Updated: Yes Plan: Given the fact that the hernia has been present for 2 years and is now getting larger involving the transverse colon. I think she would best be served by surgery in a larger institution. My concern is that she may have some degree lost some abdominal domain, making repair much more difficult. I would anticipate the need for intensive care support postoperatively and therefore feel she would best be served by being in a larger facility. Since I have been able to reduce this this evening, I think that she may go home , but I instructed her to contact Dr. Tim's office right away tomorrow morning.
== END 2018-08-27 21:52 | disposition home or self-care (01) ==
LOC: MW.ED 17:42
DX: K40.90 Unilateral inguinal hernia, without obstruction or gangrene, not specified as recurrent (principal); K21.9 Gastro-esophageal reflux disease without esophagitis; F41.9 Anxiety disorder, unspecified; F32.9 Major depressive disorder, single episode, unspecified; E03.9 Hypothyroidism, unspecified; Z79.899 Other long term (current) drug therapy; Z88.8 Allergy status to other drugs, medicaments and biological substances; Z88.2 Allergy status to sulfonamides
CPT/HCPCS: 36415; 74177; 80053; 83605; 85025; 96361; 96374; 96375; 99284; J2270; J2405; J7040; Q9967